=== PATIENT | male | born 1950 | race Caucasian/White ===

== ENCOUNTER 2021-02-23 06:09 | Day surgery (SDC) | payer MEDICARE, OTHER ==
[~2021-02-23 06:09] MED LIST: Dextrose 5%-0.45% NaCl 1,000 ML IV SCH; Sodium Chloride 0.9% 10 ML Syringe FLUSH PRN
[2021-02-23] MEDS ORDERED: fentaNYL 100 MCG/2 ML SDV IV ONE ×3 (06:10→07:29)
[2021-02-23] MEDS ORDERED: Midazolam 1 MG/ML 2 ML SDV IV ONE ×4 (06:10→07:37)
[2021-02-23] MEDS ORDERED: Midazolam 1 MG/ML 2 ML SDV ONE (06:34)
[2021-02-23] MEDS ORDERED: fentaNYL 100 MCG/2 ML SDV ONE (06:35)
[2021-02-23] MEDS ORDERED: Dextrose 5%-0.45% NaCl 1,000 ML IV SCH (06:45)
--- NOTE | 2021-02-23 09:40 | OR ---
DATE: 02/23/2021 PROCEDURES: Total colonoscopy and multiple pinch biopsies. INSTRUMENT USED: PCF-H190DL Olympus video colonoscope. PREMEDICATIONS: Fentanyl 100 mcg intravenous, Versed 2.5 mg intravenous. Nasal O2 cannula. The procedure was done under pulse oximetry, BP recording, and hall monitor. INDICATIONS: The patient with history of longstanding ulcerative colitis. Surveillance colonoscopic examination is done for detection of any polypoid lesions and removal, biopsies to be obtained for dysplasia, endoscopic hemostasis therapy if needed. DESCRIPTION OF PROCEDURE: Initial rectal exam was unremarkable. Rigid anoscopy showed small internal hemorrhoids without bleeding from them. The colonoscope was passed with ease up to the ileocecal area. Photographs were taken of the normal-appearing cecum identified by landmarks of appendiceal orifice and double- bulged ileocecal folds. No bleeding was noted from any of the visualized areas at the commencement of the examination. Bowel preparation was found to be adequate. Munich scale 2 in right and left colon, 3 in transverse colon, total score 7. No stricture, no vascular ectasia. No large isolated ulcerations seen. No evidence of diffuse inflammatory bowel disease in the form of friability, contact bleeding, or ulcerations. No polyp or tumor mass identified. Probing the proximal sides of folds and flexures using adequate distention and clearing of the stool material, withdrawal of the scope was made. Four-quadrant biopsies were taken at 10 cm distance apart from the cecum to rectum, sent for any histopathologic evidence of dysplasia. Tissues obtained were pooled into bags; #1 cecum and ascending colon, #2 transverse colon, #3 descending colon, and #4 rectal sigmoid. No bleeding was noted from any of the visualized areas at the completion of examination. IMPRESSION: Internal hemorrhoids. The patient tolerated the procedure well. [facility] /[id number]
--- NOTE | 2021-02-23 09:46 | LETTER ---
02/23/2021 RE: MARILYN VALLE : 1950 [address] [place] [address], [place] [id number] Dear Ms. Chow: Mr. Marilyn Valle had colonoscopic examination done this morning, and he tolerated the procedure well. I herewith send a copy of the endoscopy note and photographs for your review. Thank you. Sincerely, [facility] /[id number]
== END 2021-02-23 09:54 | disposition home or self-care (01) ==
LOC: DL.ENDO 06:09
PROVIDERS: ATTEND Internal Medicine Gastroenterology
DX: K63.5 Polyp of colon (principal); K52.9 Noninfective gastroenteritis and colitis, unspecified; K64.8 Other hemorrhoids; E66.09 Other obesity due to excess calories; I10 Essential (primary) hypertension
CPT/HCPCS: 45380; J2250; J3010; J7042